=== PATIENT | female | born 1980 | race Caucasian/White ===

== ENCOUNTER 2017-06-08 09:18 | Emergency (ER) | payer BC ==
[2017-06-08 10:15] VITALS: BP 121/70
--- NOTE | 2017-06-08 10:43 | UC ---
Respiratory Complaint HPI - HPI Summary HPI Summary: Patient here today with 2 days of cough and chest congestion. States it feels like when she had bronchitis a little over a month ago and was treated with Zithromax and got relief. Patient denies fevers chills nausea vomiting - History of Current Complaint Chief Complaint: UCRespiratory Stated Complaint: CHEST NATHEN/PRESSURE Time Seen by Provider: 06/08/17 10:34 Hx Obtained From: Patient Hx Last Menstrual Period: 06/06/17 ?: No Onset/Duration: Sudden Onset, Lasting Days - 2, Still Present Timing: Constant Severity Initially: Moderate Severity Currently: Moderate Pain Intensity: 8 Pain Scale Used: 0-10 Numeric Character: Cough: Nonproductive Aggravating Factors: Nothing Alleviating Factors: OTC Meds Associated Signs And Symptoms: Positive: Chills, Pleuritic Chest Pain, URI, Nasal Congestion - Allergies/Home Medications Allergies/Adverse Reactions: Allergies Allergy/AdvReac Type Severity Reaction Status Date / Time Penicillins Allergy Difficulty Verified 06/08/17 10:09 Breathing/Wheezing Home Medications: Home Medications Hydroxychloroquine TAB* [Plaquenil TAB*] 200 mg PO BID 06/08/17 [History Confirmed 06/08/17] PMH/Surg Hx/FS Hx/Imm Hx Previously Healthy: No - rheumatoid arthritis - Surgical History Surgical History: Yes Surgery Procedure, Year, and Place: 2006, [place] , T&A 1992 - Family History Known Family History: Positive: None - Social History Occupation: Works From/At Home Lives: With Family Alcohol Use: None Substance Use Type: None Smoking Status (MU): Never Smoked Tobacco - Immunization History Most Recent Influenza Vaccination: 11-10-14 Review of Systems Constitutional: Fever - Subjective fever, Chills Skin: Negative Eyes: Negative ENT: Nasal Discharge, Sinus Congestion Respiratory: Cough Cardiovascular: Negative Gastrointestinal: Negative Genitourinary: Negative Motor: Negative Neurovascular: Negative Musculoskeletal: Negative Neurological: Negative Psychological: Negative Is Patient Immunocompromised?: No All Other Systems Reviewed And Are Negative: Yes Physical Exam Triage Information Reviewed: Yes Appearance: Well-Appearing, No Pain Distress, Well-Nourished Vital Signs: Initial Vital Signs Temp 98.0 F 06/08/17 10:04 Pulse 89 06/08/17 10:04 Resp 16 06/08/17 10:04 BP 121/70 06/08/17 10:04 Pulse Ox 99 06/08/17 10:04 Vital Signs Reviewed: Yes Eye Exam: Normal Eyes: Positive: Conjunctiva Clear ENT Exam: Normal ENT: Positive: Normal ENT inspection, Hearing grossly normal, Pharynx normal, Nasal congestion, TMs normal, Uvula midline. Negative: Tonsillar swelling, Tonsillar exudate, Trismus, Muffled voice, Hoarse voice, Dental tenderness, Sinus tenderness Dental Exam: Normal Neck exam: Normal Neck: Positive: Supple, Nontender Respiratory Exam: Normal Respiratory: Positive: Chest non-tender, Lungs clear, Normal breath sounds, No respiratory distress, No accessory muscle use Cardiovascular Exam: Normal Cardiovascular: Positive: RRR, No Murmur, Pulses Normal, Brisk Capillary Refill Musculoskeletal Exam: Normal Musculoskeletal: Positive: Strength Intact, ROM Intact, No Edema Neurological Exam: Normal Neurological: Positive: Alert, Muscle Tone Normal Psychological Exam: Normal Skin Exam: Normal UC Diagnostic Evaluation - Laboratory O2 Sat by Pulse Oximetry: 99 Respiratory Course/Dx - Course Course Of Treatment: Use albuterol, Mucinex, Sudafed, to help relieve symptoms. If symptoms persist or worsen will consider using antibiotic. Increase fluids follow with primary care doctor when necessary - Differential Dx/Diagnosis Provider Diagnoses: Bronchospasm, bronchitis likely secondary to environmental Discharge - Sign-Out/Discharge Documenting (check all that apply): Discharge/Admit/Transfer - Discharge Plan Condition: Stable Disposition: HOME Prescriptions: Albuterol HFA INHALER* [Ventolin HFA Inhaler*] 2 puff INH Q4H PRN #1 mdi PRN Reason: cough, chest tightness Azithromycin TAB* [Zithromax TAB (Z-SHEELA) 250 mg #6 tabs] 2 tab PO .TODAY, THEN 1 DAILY #1 sheela Patient Education Materials: Decongestant/Expectorant (By mouth), Acute Bronchitis (ED), Bronchospasm (ED), How to Use a Metered-Dose Inhaler and a Spacer (ED) Referrals: Sarkis Liu MD [Primary Care Provider] - If Needed - Billing Disposition and Condition Condition: STABLE Disposition: HOME
== END 2017-06-08 10:58 | disposition home or self-care (01) ==
LOC: UCCORT 09:18
DX: J98.01 Acute bronchospasm (principal); J40 Bronchitis, not specified as acute or chronic; Z88.0 Allergy status to penicillin
CPT/HCPCS: 99212; G0463